=== PATIENT | female | born 1985 | race Caucasian/White ===

== ENCOUNTER 2019-04-05 18:58 | Observation (INO) ==
[2019-04-05 21:31] LABS: Basophils % 0.3 % (0.0-0.8); Eosinophils # 0.2 10*3/uL (0.0-0.87); Eosinophils % 1.7 % (0.00-10.9); Hematocrit 32.9 VOL% (35.7-47.0); Hemoglobin 10.2 GM/DL (12.0-16.0); Immature Granulocytes % 0.8 %; Immature Granulocytes Absolute 0.09 #; Lymphocytes # 1.8 10*3/uL (1.4-4.0); Lymphocytes % 15.9 % (21.3-54.2); Mean Corpuscular Volume 81.8 FL (87-102); Mean Platelet Volume 9.9 FL (9.6-12.0); Monocytes % 5.3 % (1.7-12.7); Platelet Count 297 T/CUMM (130-400); Red Blood Count 4.02 MC/CUMM (3.8-5.5); White Blood Count 11.1 T/CUMM (4-12)
[2019-04-05 22:01] LABS: Albumin 3.1 G/DL (3.4-5.0); Bilirubin,Total 0.4 MG/DL (0.2-1.0); Calcium 8.4 MG/DL (8.5-10.1); Osmolality,Calculated 276.4 MOS/KG (273-304); Total Protein 6.6 G/DL (6.4-8.3)
[2019-04-06] MEDS ORDERED: ACETAMINOPHEN 325 MG TABLET PO PRN (08:31)
[2019-04-06] MEDS ORDERED: hydroCHLOROthiazide 25 MG TABLET PO SCH (14:00)
[2019-04-06] MEDS ORDERED: amLODIPine 2.5 MG TABLET PO SCH (14:25)
[2019-04-06 20:49] VITALS: BP 129/76
[2019-04-07] MEDS ORDERED: hydroCHLOROthiazide 25 MG TABLET PO SCH (14:00)
== END 2019-04-06 22:09 | disposition home or self-care (01) ==
LOC: N.TELEN
PROVIDERS: ADMIT Obstetrics & Gynecology; ATTEND Obstetrics & Gynecology

== ENCOUNTER 2019-10-27 16:51 | Inpatient (IN) ==
[2019-10-27 17:26] LABS: Basophils % 0.2 % (0.0-0.8); Eosinophils # 0.1 10*3/uL (0.0-0.87); Eosinophils % 0.6 % (0.00-10.9); Hematocrit 36.8 VOL% (35.7-47.0); Hemoglobin 11.6 GM/DL (12.0-16.0); Immature Granulocytes % 0.7 %; Immature Granulocytes Absolute 0.09 #; Lymphocytes % 15.9 % (21.3-54.2); Mean Corpuscular HGB Conc 31.5 GM/DL (32-36); Mean Corpuscular Volume 79.7 FL (87-102); Mean Platelet Volume 10.7 FL (9.6-12.0); Monocytes % 5.4 % (1.7-12.7); Neutrophils % 77.2 % (38.7-73.9); Platelet Count 259 T/CUMM (130-400); Red Blood Count 4.62 MC/CUMM (3.8-5.5); Red Cell Distribution Width 17.3 % (9.3-17.3); White Blood Count 12.5 T/CUMM (4-12)
[2019-10-27] MEDS ORDERED: LACTATED RINGERS 1,000 ML IV SCH (17:30)
[2019-10-27 17:39] LABS: PT Patient Result 10.3 SECS (9.8-11.9); Partial Thromboplastin Time 31.9 SECS (23.9-33.8)
[2019-10-27 17:50] LABS: Alanine Aminotransferase 35 U/L (13-56); Albumin 2.6 G/DL (3.4-5.0); Alkaline Phosphatase 129 U/L (45-117); Aspartate Amino Transferase 20 U/L (0-37); Bilirubin,Total < 0.39 MG/DL (0.2-1.0); Blood Urea Nitrogen 17 MG/DL (7-18); Calcium 9.5 MG/DL (8.5-10.1); Estimated Glom Filtration Rate 161 ML/MIN; Glucose 83 MG/DL (74-106); Total Protein 7.4 G/DL (6.4-8.3)
[2019-10-28] MEDS ORDERED: HEPARIN 5,000 UNIT/1 ML VIAL SUBCUT ONE (05:54)
[2019-10-28] MEDS ORDERED: CITRIC ACID/SODIUM CITRATE 30 ML UDCUP PO ONE (06:00)
[2019-10-28] MEDS ORDERED: FAMOTIDINE 20 MG/2 ML VIAL IV ONE (06:00)
[2019-10-28] MEDS ORDERED: OXYTOCIN/LR 20 UNIT/1,000 ML BAG IV ONE ×3 (06:00→09:02)
[2019-10-28] MEDS ORDERED: CLINDAMYCIN INJ 900 MG in PREMIX 1 EACH IV ONE (06:00)
[2019-10-28] MEDS ORDERED: miSOPROStoL 200 MCG TABLET ONE (07:16)
[2019-10-28] MEDS ORDERED: CARBOPROST TROMETHAMINE 250 MCG/ML AMP IM ONE (07:17)
[2019-10-28] MEDS ORDERED: SODIUM CHLORIDE 0.9% 100 ML IV ONE (07:17)
[2019-10-28] MEDS ORDERED: TRANEXAMIC ACID 1,000 MG/10 ML VIAL ONE ×2 (07:17→18:31)
[2019-10-28] MEDS ORDERED: RHO(D) IMMUNE GLOBULIN 300 MCG SYRINGE IM ONE (09:02)
[2019-10-28] MEDS ORDERED: ONDANSETRON 4 MG/2 ML VIAL IV PRN (09:02)
[2019-10-28] MEDS ORDERED: ACETAMINOPHEN 325 MG TABLET PO PRN (09:02)
[2019-10-28] MEDS ORDERED: PROMETHAZINE 25 MG/1 ML VIAL IM PRN (09:10)
[2019-10-28] MEDS ORDERED: MORPHINE 4 MG/1 ML VIAL IV PRN ×2 (09:10)
[2019-10-28] MEDS ORDERED: LIDOCAINE 2% 5 ML VIAL ONE (09:12)
[2019-10-28] MEDS ORDERED: SEVOFLURANE 1 UNIT/15 MINUTE INH ONE (09:12)
[2019-10-28] MEDS ORDERED: propofoL 200 MG/20 ML VIAL IV ONE (09:12)
[2019-10-28] MEDS ORDERED: fentaNYL 100 MCG/2 ML VIAL ONE (09:13)
[2019-10-28] MEDS ORDERED: ROCURONIUM 100 MG/10 ML VIAL IV ONE (09:13)
[2019-10-28] MEDS ORDERED: ONDANSETRON 4 MG/2 ML VIAL ONE (09:13)
[2019-10-28] MEDS ORDERED: MIDAZOLAM 2 MG/2 ML VIAL ONE (09:13)
[2019-10-28] MEDS ORDERED: SUCCINYLCHOLINE 200 MG/10 ML VIAL ONE (09:13)
[2019-10-28] MEDS ORDERED: GLYCOPYRROLATE 0.4 MG/2 ML VIAL ONE (09:13)
[2019-10-28] MEDS ORDERED: NEOSTIGMINE 10 MG/10 ML VIAL ONE (09:13)
[2019-10-28] MEDS ORDERED: MORPHINE 10 MG/1 ML VIAL ONE (09:14)
[2019-10-28] MEDS ORDERED: LACTATED RINGERS 1,000 ML IV SCH (09:30)
[2019-10-28 09:31] LABS: Apearance,Urine Slightly Hazy (Clear); Bilirubin,Urine Negative (Negative); Blood, Urine Negative (Negative); Glucose,Urine (UA) Negative (Negative); Ketones,Urine Negative (Negative); Mucus,Urine Occasional /LPF (Occasional); Nitrite,Urine Negative (Negative); Protein,Urine 30 MG/DL; RBC,Urine <1 /HPF (0-4); Squamous Epithelial Cell,Urine Occasional /HPF (0-10); Urine Color Yellow (Yellow); Urine Specific Gravity 1.027 (1.001-1.035); Urine Urobilinogen < 2.0 EU/DL (0.2-1.0); WBC,Urine <1 /HPF (0-6)
[2019-10-28] MEDS: LOSARTAN/HCTZ 50-12.5 MG TABLET PO SCH (12:05)
[2019-10-28] MEDS: IBUPROFEN 800 MG TABLET PO PRN (15:10)
[2019-10-28] MEDS: CLINDAMYCIN INJ 900 MG in PREMIX 1 EACH IV SCH ×2 (15:10→23:40)
[2019-10-28] MEDS: HEPARIN 5,000 UNIT/1 ML VIAL SUBCUT SCH (18:02)
[2019-10-28 20:30] LABS: Hematocrit 31.2 VOL% (35.7-47.0); Hemoglobin 9.7 GM/DL (12.0-16.0)
[2019-10-29] MEDS: HEPARIN 5,000 UNIT/1 ML VIAL SUBCUT SCH ×3 (02:47→17:15)
[2019-10-29] MEDS: IBUPROFEN 800 MG TABLET PO PRN ×2 (02:50→13:40)
[2019-10-29] MEDS: DOCUSATE SODIUM 100 MG CAPSULE PO SCH ×3 (06:39→21:45)
[2019-10-29 07:05] LABS: Basophils % 0.3 % (0.0-0.8); Eosinophils # 0.1 10*3/uL (0.0-0.87); Eosinophils % 0.5 % (0.00-10.9); Hematocrit 30.5 VOL% (35.7-47.0); Hemoglobin 9.5 GM/DL (12.0-16.0); Immature Granulocytes % 0.8 %; Lymphocytes # 1.8 10*3/uL (1.4-4.0); Lymphocytes % 14.2 % (21.3-54.2); Mean Corpuscular HGB Conc 31.1 GM/DL (32-36); Mean Corpuscular Volume 81.8 FL (87-102); Neutrophils % 77.2 % (38.7-73.9); Platelet Count 231 T/CUMM (130-400); Red Blood Count 3.73 MC/CUMM (3.8-5.5); Red Cell Distribution Width 17.6 % (9.3-17.3); White Blood Count 12.8 T/CUMM (4-12)
[2019-10-29] MEDS: SIMETHICONE CHEW 80 MG TABLET PO PRN (08:30)
[2019-10-29] MEDS: MULTIVITAMIN (PRENATAL) TABLET PO SCH (08:30)
[2019-10-29] MEDS: MAGNESIUM HYDROXIDE SUSP 30 ML UDCUP PO PRN ×2 (08:30→21:44)
[2019-10-29] MEDS: CITALOPRAM 20 MG TABLET PO SCH (08:30)
[2019-10-29] MEDS: LOSARTAN/HCTZ 50-12.5 MG TABLET PO SCH (08:30)
[2019-10-29] MEDS ORDERED: CITALOPRAM 20 MG TABLET PO SCH (09:00)
[2019-10-30] MEDS: HEPARIN 5,000 UNIT/1 ML VIAL SUBCUT SCH ×2 (01:02→08:40)
[2019-10-30] MEDS: IBUPROFEN 800 MG TABLET PO PRN ×2 (01:05→08:40)
[2019-10-30] MEDS: SIMETHICONE CHEW 80 MG TABLET PO PRN (08:40)
[2019-10-30] MEDS: MULTIVITAMIN (PRENATAL) TABLET PO SCH (08:40)
[2019-10-30] MEDS: LOSARTAN/HCTZ 50-12.5 MG TABLET PO SCH (08:40)
[2019-10-30] MEDS: DOCUSATE SODIUM 100 MG CAPSULE PO SCH (08:40)
[2019-10-30] MEDS: CITALOPRAM 20 MG TABLET PO SCH (08:40)
[2019-10-30] MEDS: MAGNESIUM HYDROXIDE SUSP 30 ML UDCUP PO PRN (08:40)
[2019-10-30 10:34] VITALS: BP 126/81
== END 2019-10-30 10:30 | disposition home or self-care (01) | DRG 785 ==
LOC: N.LDOUT 16:51 → N.LD 16:53 → N.OB 10-28 13:00
PROVIDERS: ADMIT Obstetrics & Gynecology; ATTEND Obstetrics & Gynecology